=== PATIENT | male | born 1955 | race Caucasian/White ===

== ENCOUNTER 2024-10-03 14:11 | Emergency (ER) | payer MEDICARE, OTHER, SELFPAY ==
[2024-10-03 14:14] VITALS: BP 161/87
--- NOTE | 2024-10-03 15:11 | ED.MUSCINJ ---
HPI-Injury
General
Chief Complaint: Musculo-Skeletal Complaint
Source: patient
Exam Limitations: none
Time Seen by Provider: 10/03/24 14:38
Nursing documentation reviewed up to this point in time: agreed with
History of Present Illness-Injury
Initial Injury comments:
69-year-old male with history of HTN, mini stroke, rectal cancer cleared after chemo and radiation therapy states he jumped into his pool at home yesterday and twisted his left ankle. He is able to weight-bear but with pain.
Past History
Past History
ED Past Medical History: Cancer (Rectal, clear after radiation and chemotherapy 2022), CVA and HTN
ED Past Surgical History: None
Social History
Tobacco: Non-smoker
Alcohol: Occasional
Personal:
Living: with family
Employment: Employed
Review of Systems
Review of Systems
Allergies reviewed?: Yes
All Other Systems: ROS reviewed and negative except as documented in HPI and ROS
Musculoskeletal: Reports other (Pain left ankle)
Skin: Reports no symptoms
Musculoskeletal Injury Exam
Musculoskeletal Injury Exam
Left Ankle:
Pain with Movement?: Moderate
Tender to palpation?: Moderate (Medial and lateral aspects of ankle)
Soft tissue swelling?: Mild
External deformity and angulation?: None
Joint instability?: No
Malalignment/deformity?: No
Range of motion: Full
Distal skin color and temperature: normal-warm & good color
Capillary Refill: normal
Phy Exam
Physical Exam
Physical Exam:
PHYSICAL EXAMINATION:
General: no apparent distress, not acutely ill
Neuro: alert and oriented.
Psychiatric: well kept. interactive and cooperative
Musculoskeletal: Moves with ease
Skin: Warm, pink.
Injury Course
Orders/Labs/Results
Orders:
Orders
10/03/24 14:17
Ankle, left 3 view CR [CR Ankle - Left Min 3 Views ] Urgent
Comment:
Reason For Exam: pain, trauma
10/03/24 16:14
Asael Wrap Right-Treatment ONCE
Air Splint Right-Treatment ONCE
MDM/Problems Addressed
Differential Diagnosis Includes:
sprain versus fracture of the ankle
MDM/Problems Addressed:
69-year-old male with history of HTN, mini stroke, rectal cancer cleared after chemo and radiation therapy states he jumped into his pool at home yesterday and twisted his left ankle. He is able to weight-bear but with pain.
Left ankle x-ray initially read by this examiner: No fracture, + soft tissue swelling
Asael wrap and air splint applied, patient ambulating well after application, distal neurovascular intact.
*Critical Care Note
Total Time (30-74mins, 75-104mins- exclusive of procedures): Not Applicable
ED Attending Note
-
Portions of this chart may have been created with voice recognition software.� Occasional wrong word or��sound alike� substitutions may have occurred due to the inherent limitations of voice recognition software.
Discharge Plan
Departure
Patient Disposition: Home (Routine Discharge)
Date of Disposition: 10/03/24
Time of Disposition: 16:15
Patient with high blood pressure during this ER visit?: No
Condition: Good
Discharge Problem:
Right ankle sprain
Instructions: Using Cold for Pain, Ankle sprain - ED discharge instructions
Referrals:
Jimy Sorensen MD [Family Provider] -
Neno Sesay MD [Active] - As needed
Activity Restrictions/Additional Instructions:
As we discussed, your x-ray shows nothing broken. You have a sprained ankle. Wear the Asael wrap and air splint until you can walk comfortably without them
See the orthopedic doctor if your ankle is not a lot better in 1 week or not 100% better in 3 to 4 weeks.
Interventions
Interventions:
*Risk Screen - Suicide Last Done: 10/03/24 14:16
*General Assessment Last Done: 10/03/24 15:26
*Neglect/Abuse Screening Last Done: 10/03/24 14:16
*ED COVID-19 Vaccine History Last Done: 10/03/24 15:26
*Nursing Disposition Last Done: 10/03/24 16:22
ED-Musculoskeletal Assessment Last Done: 10/03/24 15:26
Discharge Date and Time
Discharge Date/Time: 10/03/24 16:29
Print Language: AMHARIC
[2024-10-03 16:20] VITALS: BP 151/86
== END 2024-10-03 16:29 | disposition home or self-care (01) ==
LOC: EMR 14:11
PROVIDERS: EMERGENCY PHYSICIAN Student in an Organized Health Care Education/Training Program; FAMILY PHYSICIAN Internal Medicine
DX: S93.401A Sprain of unspecified ligament of right ankle, initial encounter (principal); X50.1XXA Overexertion from prolonged static or awkward postures, initial encounter; I10 Essential (primary) hypertension; Z86.73 Personal history of transient ischemic attack (TIA), and cerebral infarction without residual deficits; Z85.048 Personal history of other malignant neoplasm of rectum, rectosigmoid junction, and anus
CPT/HCPCS: 29515; 99283; 73610